=== PATIENT | male | born 1985 | race Caucasian/White ===

== ENCOUNTER 2021-02-11 01:33 | Emergency (ER) | payer OTHER, SELFPAY ==
--- NOTE | ~2021-02-11 | CT_ITS ---
EXAMINATION: CT CERVICAL SPINE WITHOUT CONTRAST CLINICAL INFORMATION: Lower spine tenderness with paresthesias. Left arm numbness. COMPARISON: None. TECHNIQUE: Contiguous helical images of the cervical spine were obtained without IV contrast. Multiplanar reconstructions were performed. This CT examination was performed using dose optimization techniques as appropriate, variously including the following: *Automated exposure control *Adjustment of mA and/or kV according to patient size (this includes techniques or standardized protocols for targeted exams where dose is matched to indication/reason for exam; i.e. extremities or head) *Use of iterative reconstruction technique DLP: 294 mGy-cm FINDINGS: There is anatomic alignment of the vertebral bodies and posterior elements. The atlantoaxial and atlantooccipital articulations are intact. Vertebral body heights and intervertebral disc spaces are maintained. There is no bony narrowing of the spinal canal or neural foramina. No evidence of acute fracture. No prevertebral soft tissue swelling. There is no cervical lymphadenopathy. The visualized thyroid gland is unremarkable. The visualized base of the brain is unremarkable. Mild paraseptal and centrilobular emphysema at the lung apices.. CT/CT cervical spine wo con IMPRESSION: No acute abnormality or significant spondylosis.
[2021-02-11 01:34] VITALS: BP 152/85; PULSE 84; RESP 18; TEMP 37; O2SAT 97; BMI 22.4
[2021-02-11 02:05] VITALS: BP 136/77; TEMP 37
[2021-02-11 02:09] VITALS: PULSE 69; O2SAT 100
--- NOTE | 2021-02-11 02:31 | ED_ITS ---
HPI - Back Pain/Injury General Chief Complaint: Back Pain/Injury Stated Complaint: back/shoulder pain Time Seen by Provider: 02/11/21 02:31 Source: patient Mode of arrival: ambulatory Limitations: no limitations History of Present Illness HPI Narrative: Patient with chronic back problems for more than 20 years no co mplaining of neck pain for last few days and also for last 4 days noticed tingling in left 4th and 5th finger seen MD at urgent care center who prescribed him prednisone and Flexeril. Patient comes here now for more imaging dated patient never had any MRI or x-rays of the spine no trauma patient does complain of neck pain which in the lower part of the neck and bilateral lower back ambulatory in the ER without any distress no focal weakness Related Data Previous Rx's Medication Instructions Recorded tramadol 50 mg tablet 50 mg PO Q6H PRN #20 tab 02/11/21 Allergies Allergy/AdvReac Type Severity Reaction Status Date / Time sulfamethoxazole Allergy Unknown ANAPHYLAXIS Unverified 01/31/20 19:20 [From BACTRIM] trimethoprim [From BACTRIM] Allergy Unknown ANAPHYLAXIS Unverified 01/31/20 19:20 Review of Systems Review of Systems: Yes all other systems are reviewed and are negative [facility] Social History Social History Alcohol intake: never Patient Tobacco Use Status: Current everyday Tobacco user Use of substances other than those prescribed or required for medical reasons: No Advance Directives: No Physical Exam Vital Signs: Vital Signs: Last Vital Signs Temp 97.8 F 02/11/21 03:54 Pulse 50 02/11/21 03:54 Resp 18 02/11/21 01:34 BP 114/66 02/11/21 03:54 Pulse Ox 97 02/11/21 03:54 Body Mass Index 22.4 Const: General: no acute distress Orientation/consciousness: patient oriented x3 HENMT: Head: Yes normocephalic and Yes atraumatic Neck: Neck: Yes full ROM, Yes supple, No midline deformity and Yes tender (Lower spine) Neck images: 1. Tenderness at C7-C8 with paraspinal spasm no deformity Resp: Effort & Inspection: normal respiratory effort Auscultation: clear to auscultation bilaterally Cardio: Palpation: normal PMI Rate: regular rate Rhythm: regular rhythm Heart sounds: S1 normal heart sound present and S2 normal heart sound present Back/Spine/Pelvis: Thoracic/Lumbar Spine: thoracic and lumbar spine normal to inspection, paraspinal muscle tenderness, thoraco-lumbar spasm, No thoracic spinal tenderness and No lumbar spinal tenderness Back/spine/pelvis image: 1. Paraspinal tenderness no spinal deformity/tenderness Neuro: General: patient oriented x3, gait normal, tone normal, moves all extremities, no focal motor deficits and absent sensation to monofilament MDM - Back Pain/Injury MDM Narrative Medical decision making narrative: Patient with diffuse back problems no focal tenderness CT C-spine negative for any acute fracture arthritis patient advised for PCP /orthopedics for further evaluation Discharge Plan Discharge Clinical Impression: Cervical arthritis Patient Disposition: Home, Self-Care Instructions: Neck Pain (ED) Additional Instructions: Continue to take her muscle relaxant and prednisone as prescribed by another doctor Pain medication as prescribed for with your PCP/pensions retirement plan specialist for further evaluation treatment Prescriptions: New tramadol 50 mg tablet 50 mg PO Q6H PRN (Reason: pain) Qty: 20 RF: 0 Referrals: Asad Beck MD [Physician] - 1 week Interventions: ED Discharge Assessment Last Done: 02/11/21 04:38 Discharge Date/Time: 02/11/21 04:40
[2021-02-11 03:54] VITALS: BP 114/66; PULSE 50; TEMP 36.6; O2SAT 97
[2021-02-11] MEDS: Ketorolac Tromethamine 60 MG/2 ML VIAL IM (04:41)
== END 2021-02-11 04:40 | disposition home or self-care (01) ==
PROVIDERS: Emergency Provider Internal Medicine
DX: M47.812 Spondylosis without myelopathy or radiculopathy, cervical region (principal); M54.5 Low back pain; M25.512 Pain in left shoulder; M25.511 Pain in right shoulder; Z79.899 Other long term (current) drug therapy; F17.200 Nicotine dependence, unspecified, uncomplicated; Z71.6 Tobacco abuse counseling
CPT/HCPCS: 72125; 96372; 99284; 99285; J1885